=== PATIENT | male | born 1960 | race Caucasian/White ===

== ENCOUNTER 2025-01-07 08:34 | Outpatient (RCR) | payer MEDICARE, OTHER, SELFPAY ==
[2025-01-07] VITALS (12 sets, daily range): BP systolic 106–137; BP diastolic 58–70
[2025-01-07] MEDS: BENADRYL 25 MG PO (09:12)
[2025-01-07] MEDS: TYLENOL 650 MG PO (09:12)
[2025-01-07] MEDS: GAMMAGARD 300 IV ×2 (09:13→12:34)
[2025-01-07] MEDS: GAMMAGARD 200 IV ×2 (10:47→11:39)
[2025-01-07 11:12] LABS: ALT (SGPT) 35 U/L (0-50); AST (SGOT) 31 U/L (17-59); Albumin 4.9 g/dl (3.5-5.0); Alkaline Phosphatase 58 U/L (38-126); Blood Urea Nitrogen 23 mg/dl (9-20); Calcium 10.2 mg/dl (8.4-10.2); Carbon Dioxide 24 mmol/L (22-30); Chloride 107 mmol/L (98-107); Glucose 138 mg/dl (70-99); Potassium 4.2 mmol/L (3.5-5.1); Sodium 139 mmol/L (135-145); Total Protein 7.3 g/dl (6.3-8.2); eGFR > 60.00
== END 2025-01-08 08:55 | disposition home or self-care (01) ==
LOC: OID 08:34
PROVIDERS: ATTENDING PHYSICIAN Psychiatry & Neurology Neurology; FAMILY PHYSICIAN Family Medicine
DX: G61.81 Chronic inflammatory demyelinating polyneuritis (principal)
CPT/HCPCS: 36415; 80053; 96365; 96366; J1569

== ENCOUNTER 2025-02-04 07:40 | Outpatient (RCR) | payer MEDICARE, OTHER, SELFPAY ==
[2025-02-04] VITALS (11 sets, daily range): BP systolic 114–127; BP diastolic 60–77
[2025-02-04] MEDS: BENADRYL 25 MG PO (08:24)
[2025-02-04] MEDS: TYLENOL 650 MG PO (08:24)
[2025-02-04] MEDS: GAMMAGARD 200 IV ×2 (08:25→09:34)
[2025-02-04 09:39] LABS: ALT (SGPT) 25 U/L (0-50); AST (SGOT) 24 U/L (17-59); Albumin 4.5 g/dl (3.5-5.0); Alkaline Phosphatase 62 U/L (38-126); Blood Urea Nitrogen 18 mg/dl (9-20); Calcium 10.2 mg/dl (8.4-10.2); Carbon Dioxide 21 mmol/L (22-30); Chloride 109 mmol/L (98-107); Glucose 133 mg/dl (70-99); Potassium 4.1 mmol/L (3.5-5.1); Sodium 138 mmol/L (135-145); Total Protein 7.2 g/dl (6.3-8.2); eGFR > 60.00
[2025-02-04] MEDS: GAMMAGARD 300 IV ×2 (10:26→11:47)
== END 2025-02-05 08:19 | disposition home or self-care (01) ==
LOC: OID 07:40
PROVIDERS: ATTENDING PHYSICIAN Psychiatry & Neurology Neurology; FAMILY PHYSICIAN Family Medicine
DX: G61.81 Chronic inflammatory demyelinating polyneuritis (principal)
CPT/HCPCS: 80053; 96365; 96366; J1569

== ENCOUNTER 2025-03-16 08:22 | Outpatient (RCR) | payer MEDICARE, OTHER, SELFPAY ==
[2025-03-16] VITALS (11 sets, daily range): BP systolic 99–119; BP diastolic 54–86
[2025-03-16] MEDS: GAMMAGARD 200 IV ×2 (08:55→10:02)
[2025-03-16] MEDS: TYLENOL 650 MG PO (08:56)
[2025-03-16] MEDS: BENADRYL 25 MG PO (08:57)
[2025-03-16 09:58] LABS: ALT (SGPT) 28 U/L (0-50); AST (SGOT) 26 U/L (17-59); Albumin 4.4 g/dl (3.5-5.0); Alkaline Phosphatase 63 U/L (38-126); Blood Urea Nitrogen 18 mg/dl (9-20); Calcium 10.1 mg/dl (8.4-10.2); Carbon Dioxide 23 mmol/L (22-30); Chloride 108 mmol/L (98-107); Glucose 172 mg/dl (70-99); Potassium 4.2 mmol/L (3.5-5.1); Sodium 139 mmol/L (135-145); Total Protein 7.1 g/dl (6.3-8.2); eGFR > 60.00
[2025-03-16] MEDS: GAMMAGARD 300 IV ×2 (10:54→12:30)
== END 2025-03-17 09:19 | disposition home or self-care (01) ==
LOC: OID 08:22
PROVIDERS: ATTENDING PHYSICIAN Psychiatry & Neurology Neurology; FAMILY PHYSICIAN Family Medicine
DX: G61.81 Chronic inflammatory demyelinating polyneuritis (principal)
CPT/HCPCS: 80053; 96365; 96366; J1569

== ENCOUNTER 2025-04-13 07:41 | Outpatient (RCR) | payer MEDICARE, OTHER, SELFPAY ==
[2025-04-13] VITALS (11 sets, daily range): BP systolic 102–126; BP diastolic 63–79
[2025-04-13] MEDS: TYLENOL 650 MG PO (08:25)
[2025-04-13] MEDS: BENADRYL 25 MG PO (08:25)
[2025-04-13] MEDS: GAMMAGARD 200 IV ×2 (08:28→09:34)
[2025-04-13 08:33] LABS: Hematocrit 37.3 % (39.0-52.0); Hemoglobin 13.1 g/dL (13.0-18.0); Mean Corp Hgb Conc. 35.1 g/dL (33.0-37.0); Mean Corpuscular Volume 82.2 fL (80.0-94.0); Platelet Count 170 10^3/uL (130-400); Red Cell Dist. Width 13.7 % (11.5-14.5)
[2025-04-13 09:16] LABS: ALT (SGPT) 29 U/L (0-50); AST (SGOT) 26 U/L (17-59); Albumin 4.5 g/dl (3.5-5.0); Alkaline Phosphatase 53 U/L (38-126); Blood Urea Nitrogen 16 mg/dl (9-20); Calcium 10.3 mg/dl (8.4-10.2); Carbon Dioxide 22 mmol/L (22-30); Chloride 109 mmol/L (98-107); Glucose 116 mg/dl (70-99); HDL Cholesterol 33 mg/dl; LDL Cholesterol, Calculated 83 mg/dl; Potassium 4.3 mmol/L (3.5-5.1); Sodium 137 mmol/L (135-145); Total Protein 7.2 g/dl (6.3-8.2); Very Low Density Lipoprotein 29 mg/dl (0-30); eGFR > 60.00
[2025-04-13 09:46] LABS: PSA, Total - Screen 2.73 ng/ml (0.0-4.0)
[2025-04-13 10:02] LABS: Vitamin D, 25-OH*** 37.4 ng/mL (30-80)
[2025-04-13] MEDS: GAMMAGARD 300 IV ×2 (10:26→11:40)
[2025-04-13 10:39] LABS: Glycohemoglobin (HgbA1c) 5.2 % (4.0-5.6)
== END 2025-04-14 11:46 | disposition home or self-care (01) ==
LOC: OID 07:41
PROVIDERS: ATTENDING PHYSICIAN Psychiatry & Neurology Neurology; PRIMARYCARE PHYSICIAN Family Medicine
DX: G61.81 Chronic inflammatory demyelinating polyneuritis (principal)
CPT/HCPCS: 36415; 80053; 80061; 82306; 83036; 85025; 96365; 96366; G0103; J1569

== ENCOUNTER 2025-05-14 07:53 | Outpatient (RCR) | payer MEDICARE, OTHER, SELFPAY ==
[2025-05-14] VITALS (12 sets, daily range): BP systolic 111–138; BP diastolic 68–86
[2025-05-14] MEDS: BENADRYL 25 MG PO (08:16)
[2025-05-14] MEDS: TYLENOL 650 MG PO (08:16)
[2025-05-14] MEDS: GAMMAGARD 300 IV ×2 (08:17→11:54)
[2025-05-14 09:44] LABS: ALT (SGPT) 28 U/L (0-50); AST (SGOT) 27 U/L (17-59); Albumin 4.6 g/dl (3.5-5.0); Alkaline Phosphatase 61 U/L (38-126); Blood Urea Nitrogen 19 mg/dl (9-20); Calcium 10.2 mg/dl (8.4-10.2); Carbon Dioxide 22 mmol/L (22-30); Chloride 108 mmol/L (98-107); Glucose 184 mg/dl (70-99); Potassium 4.3 mmol/L (3.5-5.1); Sodium 137 mmol/L (135-145); Total Protein 7.7 g/dl (6.3-8.2); eGFR > 60.00
[2025-05-14] MEDS: GAMMAGARD 200 IV ×2 (11:02→12:48)
== END 2025-05-15 08:52 | disposition home or self-care (01) ==
LOC: OID 07:53
PROVIDERS: ATTENDING PHYSICIAN Psychiatry & Neurology Neurology; PRIMARYCARE PHYSICIAN Family Medicine
DX: G61.81 Chronic inflammatory demyelinating polyneuritis (principal)
CPT/HCPCS: 36415; 80053; 96365; 96366; J1569

== ENCOUNTER 2025-06-11 07:53 | Outpatient (RCR) | payer MEDICARE, OTHER, SELFPAY ==
[2025-06-11] VITALS (10 sets, daily range): BP systolic 117–134; BP diastolic 58–77
[2025-06-11] MEDS: GAMMAGARD 300 IV ×2 (08:15→09:49)
[2025-06-11] MEDS: BENADRYL 25 MG PO (08:16)
[2025-06-11] MEDS: TYLENOL 650 MG PO (08:16)
[2025-06-11 09:18] LABS: ALT (SGPT) 27 U/L (0-50); AST (SGOT) 23 U/L (17-59); Albumin 4.6 g/dl (3.5-5.0); Alkaline Phosphatase 55 U/L (38-126); Blood Urea Nitrogen 15 mg/dl (9-20); Calcium 10.2 mg/dl (8.4-10.2); Carbon Dioxide 22 mmol/L (22-30); Chloride 106 mmol/L (98-107); Glucose 122 mg/dl (70-99); Potassium 4.5 mmol/L (3.5-5.1); Sodium 134 mmol/L (135-145); Total Protein 7.8 g/dl (6.3-8.2); eGFR > 60.00
[2025-06-11] MEDS: GAMMAGARD 200 IV ×2 (11:05→11:59)
== END 2025-06-12 09:57 | disposition home or self-care (01) ==
LOC: OID 07:53
PROVIDERS: ATTENDING PHYSICIAN Psychiatry & Neurology Neurology; PRIMARYCARE PHYSICIAN Family Medicine
DX: G61.81 Chronic inflammatory demyelinating polyneuritis (principal)
CPT/HCPCS: 36415; 80053; 96365; 96366; J1569

== ENCOUNTER 2025-07-09 07:30 | Outpatient (RCR) | payer MEDICARE, OTHER, SELFPAY ==
[2025-07-09] VITALS (11 sets, daily range): BP systolic 112–151; BP diastolic 55–80
[2025-07-09] MEDS: BENADRYL 25 MG PO (08:10)
[2025-07-09] MEDS: TYLENOL 650 MG PO (08:10)
[2025-07-09] MEDS: GAMMAGARD 200 IV ×2 (08:15→09:28)
[2025-07-09 09:18] LABS: ALT (SGPT) 22 U/L (0-50); AST (SGOT) 20 U/L (17-59); Albumin 4.6 g/dl (3.5-5.0); Alkaline Phosphatase 57 U/L (38-126); Blood Urea Nitrogen 21 mg/dl (9-20); Calcium 10.6 mg/dl (8.4-10.2); Carbon Dioxide 23 mmol/L (22-30); Chloride 107 mmol/L (98-107); Glucose 165 mg/dl (70-99); Potassium 4.0 mmol/L (3.5-5.1); Sodium 138 mmol/L (135-145); Total Protein 7.8 g/dl (6.3-8.2); eGFR > 60.00
[2025-07-09] MEDS: GAMMAGARD 300 IV ×2 (10:21→11:40)
== END 2025-07-10 11:26 | disposition home or self-care (01) ==
LOC: OID 07:30
PROVIDERS: ATTENDING PHYSICIAN Psychiatry & Neurology Neurology; PRIMARYCARE PHYSICIAN Family Medicine
DX: G61.81 Chronic inflammatory demyelinating polyneuritis (principal)
CPT/HCPCS: 36415; 80053; 96365; 96366; J1569